=== PATIENT | male | born 1985 | race Caucasian/White ===

== ENCOUNTER 2024-01-16 10:51 | Emergency (ER) | payer MEDICAID ==
[2024-01-16 11:20] VITALS: BP 125/79; O2SAT 99
--- NOTE | 2024-01-16 12:04 | XRAY Report ---
PROCEDURE: Knee 4+V LT INDICATIONS: injury TECHNIQUE: 4 views of the knee(s) were acquired. COMPARISON: None. FINDINGS: Bones: No fractures or dislocations. Mild medial femoral tibial compartment joint space narrowing a nd subchondral sclerosis is seen. No significant patellar subluxation. No suspicious bony lesions. Soft tissues: No knee joint effusion. No suspicious soft tissue calcifications or masses. IMPRESSION: No acute bony abnormality. No significant joint effusion. 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 Reviewed by: Tk Gramajo MD on 01/16/2024 12:03 PM PDT Approved by: Tk Gramajo MD on 01/16/2024 12:03 PM PDT Station ID: [id number]
--- NOTE | 2024-01-16 12:14 | ED Physician Documentation ---
History of Present Illness - Stated complaint Stated Complaint: GLF - Chief complaint Chief Complaint: Trauma Ext - History obtained from History obtained from: Patient - Additonal information Additional information: He had cauda equina syndrome back in June and still has some resultant nerve injury, because of that he is still not walking quite right. Because of that today at home he slipped and fell landing directly on the left knee with moderate pain. Also injured the right elbow slightly. Denies head strike. Has back pain but not increased over prior. PD PAST MEDICAL HISTORY - Past Medical History Past Medical History: Yes Other Past Medical History: SCC. blood clot left leg - Past Surgical History Past Surgical History: Yes - Allergies Allergies/Adverse Reactions: Allergies Allergy/AdvReac Type Severity Reaction Status Date / Time cefaclor [From Ceclor] Allergy Rash Verified 01/16/24 11:14 Penicillins Allergy Anaphylaxis Verified 01/16/24 11:14 - Social History Does the pt smoke?: Yes Smoking Status: Current every day smoker Does the pt drink ETOH?: No Substance Use and Type: Marijuana - Immunizations Immunizations are current?: Yes PD ED PE NORMAL - Vitals Vital signs reviewed: Yes - General General: Alert and oriented X 3, No acute distress - Neck Neck: No bony TTP - Extremities Extremities: Other (There is a contusion of the anterior left knee without tenderness or limited range of motion. Ligamentous testing of the ACL, PCL, LCL, and MCL is tight without pain. Negative grind testing. Right elbow nontender with full range of motion.) - Neuro Neuro: Alert and oriented X 3 Results - Vitals Vitals: Vital Signs - 24 hr 01/16/24 11:14 Temperature 36.7 C Heart Rate 99 Respiratory 16 Rate Blood Pressure 125/79 O2 Saturation 99 Oxygen O2 Source Room air - Rads (name of study) 4 view x-ray of the left knee was negative save mild medial osteoarthritis. Relevant Findings:: Final report received, EMP independent interpretation of te st Departure - Departure Disposition: 01 Home, Self Care Clinical Impression: Contusion of left knee Qualifiers: Encounter type: initial encounter Qualified Code(s): S80.02XA - Contusion of left knee, initial encounter Condition: Good Record reviewed to determine appropriate education?: Yes Instructions: ED Contusion Soft Tissue Comments: Tylenol as needed for the pain. Return for new or worsening symptoms. Ice and elevate it as well. There were some very mild arthritic changes in the joint on the knee which may progress over time but seems like a minimal issue compared with everything you have going on with her back. Follow-up with your doctor in a week for recheck and reexamination.
== END 2024-01-16 12:18 | disposition home or self-care (01) ==
LOC: ED 10:51
DX: S80.02XA Contusion of left knee, initial encounter (principal); W01.0XXA Fall on same level from slipping, tripping and stumbling without subsequent striking against object, initial encounter
CPT/HCPCS: 99283; 99284

== ENCOUNTER 2024-04-05 22:51 | Emergency (ER) | payer MEDICAID ==
[2024-04-05 23:07] VITALS: BP 127/83; O2SAT 99
--- NOTE | 2024-04-06 00:36 | ED Physician Documentation ---
History of Present Illness - Stated complaint Stated Complaint: R LEG PX/REDNESS - Chief complaint Chief Complaint: Ext Problem - History obtained from History obtained from: Patient - Additonal information Additional information: The patient comes to the emergency department chief complaint of right lower extremity redness and pain. He states he started to feel a vague sense of pain in his calf a couple of days ago and this is gradually escalated. He did not notice any redness until he woke up this morning. He states that the the red area has grown. He is not aware of any bite or sting. He denies any fevers, chills, aches, or malaise. He states he otherwise feels well. He has had cellulitis in this leg before and this feels the same. No history of DVT. No swelling. No other complaints at this time. PD PAST MEDICAL HISTORY - Past Medical History Past Medical History: Yes - Past Surgical History Past Surgical History: Yes Ortho: Spine surgery - Present Medications Home Medications: Ambulatory Orders Medication Instructions Recorded Confirmed Sulfamethox/Trimeth 800/160 1 each PO BID #14 tablet 04/06/24 [Bactrim Ds 800/160] - Allergies Allergies/Adverse Reactions: Allergies Allergy/AdvReac Type Severity Reaction Status Date / Time cefaclor [From [facility]] Allergy Rash Verified 04/05/24 22:57 Penicillins Allergy Anaphylaxis Verified 04/05/24 22:57 - Social History Does the pt smoke?: Yes Smoking Status: Former smoker Does the pt drink ETOH?: No Does the pt have substance abuse?: No - Immunizations Immunizations are current?: Yes - POLST Patient has POLST: No PD ED PE NORMAL - Vitals Vital signs reviewed: Yes - General General: Alert and oriented X 3, No acute distress, Well developed/nourished - HEENT HEENT: Atraumatic, Moist mucous membranes - Neck Neck: Supple, no meningeal sign - Cardiac Cardiac: Strong equal pulses - Respiratory Respiratory: No respiratory distress - Derm Derm: Warm and dry, Other (10 x 15 cm area of erythema over medial proximal right calf, well-demarcated. No central lesion, induration, or fluctuance. No streaking.) - Extremities Extremities: No deformity, No edema, Other (Mild tenderness to palpation of right calf directly over erythematous area.) - Neuro Neuro: Alert and oriented X 3 - Psych Psych: Normal mood, Normal affect Results - Vitals Vitals: Vital Signs - 24 hr 04/05/24 22:57 Temperature 36.8 C Heart Rate 87 Respiratory 16 Rate Blood Pressure 127/83 H O2 Saturation 99 Oxygen O2 Source Room air PD Medical Decision Making - ED course Complexity details: considered differential, d/w patient ED course: The patient did not have any obvious bite and or sting, and so I felt he should be treated as a cellulitis. I ordered antibiotics for the patient and sent a prescription for the same. We have discussed management at home as well as the usual indications for return. Departure - Departure Disposition: Home, Self Care Clinical Impression: Cellulitis Qualifiers: Site of cellulitis: extremity Site of cellulitis of extremity: lower extremity Laterality: right Qualified Code(s): L03.115 - Cellulitis of right lower limb Condition: Stable Instructions: ED Infec Skin Cellulitis Prescriptions: Sulfamethox/Trimeth 800/160 [Bactrim Ds 800/160] 1 each PO BID #14 tablet Comments: Since you are not aware of a bite or sting that might of caused this, we will presume infection and treated with antibiotics. You have been given your first dose here in the ER and a prescription for the remainder of your antibiotic course has been electronically transmitted to the [facility] pharmacy in [facility], your pharmacy of choice. Please pick this up for [place] in the morning and take your next dose then. Please take all doses, as directed, until the course is complete. If you feel like you are symptoms are worsening despite 2 or 3 days of antibiotics, you should return to the emergency department. Forms: PCP List Discharge Date/Time: 04/06/24 00:48
[2024-04-06] MEDS: SULFAMETH/TRIMETH DS 800/160 MG TABLET PO STA (00:43)
== END 2024-04-06 00:48 | disposition home or self-care (01) ==
LOC: ED 22:51
DX: L03.115 Cellulitis of right lower limb (principal)
CPT/HCPCS: 99283; A9270